=== PATIENT | female | born 1970 | race Caucasian/White ===

== ENCOUNTER 2017-04-02 11:25 | Emergency (ER) | payer MEDICARE, MEDICAID ==
--- NOTE | 2017-04-02 11:47 | EDM.PDOC ---
ED HPI GENERAL MEDICAL PROBLEM - General Chief Complaint: Neurological Problem Stated Complaint: seizure Time Seen by Provider: 04/02/17 11:35 Source of Information: Reports: Other (care givers) History Limitations: Reports: No Limitations - History of Present Illness INITIAL COMMENTS - FREE TEXT/NARRATIVE: 46 yo female with Down's Syndrome is brought from a local [facility] after a first time seizure that lasted about 1.5 minutes. She did bite her tongue. Is normally incontinent, so not sure if she was incontinent due to her seizure. Is on no meds for epilepsy. No recent head injuries that staff is aware of. Is back to her normal self now in the ER. 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: Other (see below) (none) - Related Data Allergies Allergy/AdvReac Type Severity Reaction Status Date / Time niacin Allergy Cannot Verified 04/02/17 11:37 Remember Home Meds: Home Meds Levothyroxine 200 mcg PO ACBREAKFAST #30 tab 04/02/17 [Rx] ED ROS GENERAL - Review of Systems Review Of Systems: See Below Constitutional: Reports: No Symptoms HEENT: Reports: No Symptoms Respiratory: Reports: No Symptoms Cardiovascular: Reports: No Symptoms Endocrine: Reports: No Symptoms GI/Abdominal: Reports: No Symptoms : Reports: No Symptoms Musculoskeletal: Reports: Other (rib pain from a recent fall, getting ibuprofen and acetaminophen for this. ) Skin: Reports: No Symptoms Neurological: Reports: Seizure Psychiatric: Reports: No Symptoms - Physical Exam Exam: See Below Exam Limited By: No Limitations General Appearance: Alert, WD/WN, No Apparent Distress Eye Exam: Bilateral Eye: Normal Inspection, PERRL Ears: Normal External Exam, Normal Canal, Hearing Grossly Normal, Normal TMs Nose: Normal Inspection, Normal Mucosa, No Blood Throat/Mouth: Normal Inspection, Normal Lips, Normal Oropharynx, Normal Voice, No Airway Compromise Head Exam: Atraumatic, Normocephalic Neck: Normal Inspection, Supple, Non-Tender Respiratory/Chest: No Respiratory Distress, Lungs Clear, Normal Breath Sounds, No Accessory Muscle Use Cardiovascular: Regular Rate, Rhythm, No Edema GI/Abdominal: Normal Bowel Sounds, Soft, Non-Tender, No Distention Neuro Exam (Abbreviated): Alert, Oriented, CN II-XII Intact, Normal Cognition, No Motor/Sensory Deficits Back Exam: Normal Inspection Extremities: Normal Inspection, Normal Range of Motion, Non-Tender, No Pedal Edema Psychiatric: Normal Affect, Normal Mood Skin Exam: Warm, Dry, Intact, Normal Color, No Rash Course - Vital Signs Last Recorded V/S: Last Vital Signs Temp 36.7 C 04/02/17 11:25 Pulse 52 L 04/02/17 12:59 Resp 15 04/02/17 12:59 BP 116/58 L 04/02/17 12:59 Pulse Ox 100 04/02/17 12:59 - Orders/Labs/Meds Orders: Active Orders 24 hr Category Date Time Status Head wo Cont [CT] Stat Exams 04/02/17 11:36 Taken Labs: Laboratory Tests 04/02/17 04/02/17 04/02/17 Range/Units 11:55 11:55 11:55 WBC 5.6 (4.5-12.0) X10-3/uL RBC 4.07 (3.23-5.20) x10(6)uL Hgb 13.3 (11.5-15.5) g/dL Hct 39.8 (30.0-51.3) % MCV 97.8 H (80-96) fL MCH 32.6 (27.7-33.6) pg MCHC 33.3 (32.2-35.4) g/dL RDW 13.0 (11.5-15.5) % Plt Count 199 (125-369) X10(3)uL Sodium 128 L (135-145) mmol/L Potassium 4.3 (3.5-5.3) mmol/L Chloride 93 L (100-110) mmol/L Carbon Dioxide 29 (23-29) mmol/L BUN 12 (5-20) mg/dL Creatinine 0.5 L (0.6-1.3) mg/dL Est Cr Clr Drug Dosing TNP Estimated GFR (MDRD) > 60 (>60) BUN/Creatinine Ratio 24.0 H (9-20) Glucose 82 (80-116) mg/dL Calcium 8.2 L (8.6-10.2) mg/dL TSH, Ultra Sensitive 8.09 H* (0.4-5.5) nlU/mL Urine Color (YELLOW) Urine Appearance (CLEAR) Urine pH (5.0-6.5) Ur Specific [place] (1.010-1.025) Urine Protein (NEGATIVE) mg/dL Urine Glucose (UA) (NEGATIVE) mg/dL Urine Ketones (NEGATIVE) mg/dL Urine Occult Blood (NEGATIVE) Urine Nitrite (NEGATIVE) Urine Bilirubin (NEGATIVE) Urine Urobilinogen (NEGATIVE) mg/dL Ur Leukocyte Esterase (NEGATIVE) Urine RBC (0) Urine WBC (0) Ur Squamous Epith Cells (NS,R,O) Urine Bacteria (NS) 04/02/17 Range/Units 12:32 WBC (4.5-12.0) X10-3/uL RBC (3.23-5.20) x10(6)uL Hgb (11.5-15.5) g/dL Hct (30.0-51.3) % MCV (80-96) fL MCH (27.7-33.6) pg MCHC (32.2-35.4) g/dL RDW (11.5-15.5) % Plt Count (125-369) X10(3)uL Sodium (135-145) mmol/L Potassium (3.5-5.3) mmol/L Chloride (100-110) mmol/L Carbon Dioxide (23-29) mmol/L BUN (5-20) mg/dL Creatinine (0.6-1.3) mg/dL Est Cr Clr Drug Dosing Estimated GFR (MDRD) (>60) BUN/Creatinine Ratio (9-20) Glucose (80-116) mg/dL Calcium (8.6-10.2) mg/dL TSH, Ultra Sensitive (0.4-5.5) nlU/mL Urine Color Yellow (YELLOW) Urine Appearance Slightly cloudy (CLEAR) Urine pH 7.0 H (5.0-6.5) Ur Specific [place] 1.015 (1.010-1.025) Urine Protein Negative (NEGATIVE) mg/dL Urine Glucose (UA) Normal (NEGATIVE) mg/dL Urine Ketones Negative (NEGATIVE) mg/dL Urine Occult Blood Large H (NEGATIVE) Urine Nitrite Negative (NEGATIVE) Urine Bilirubin Negative (NEGATIVE) Urine Urobilinogen Normal (NEGATIVE) mg/dL Ur Leukocyte Esterase Negative (NEGATIVE) Urine RBC 0-5 (0) Urine WBC 0-5 (0) Ur Squamous Epith Cells Few H (NS,R,O) Urine Bacteria Few H (NS) - Radiology Interpretation Free Text/Narrative:: Head CT scan- CT Results Date: 04/02/17 Departure - Departure Time of Disposition: 13:21 Disposition: Home, Self-Care 01 Condition: Good Clinical Impression: Seizure Hypothyroidism Qualifiers: Hypothyroidism type: unspecified Qualified Code(s): E03.9 - Hypothyroidism, unspecified - Discharge Information Prescriptions: Levothyroxine 200 mcg PO ACBREAKFAST #30 tab Referrals: Davy Romano MD [ED Physician] - Forms: ED Department Discharge Additional Instructions: Increase your thyroid medicine to 200 mcg daily. F/U for recheck in the clinic in the next week or so, call for an appt. If another seizure occurs will need recheck to start seizure medicine. - My Orders Last 24 Hours: My Active Orders 04/02/17 11:36 Head wo Cont [CT] Stat - Assessment/Plan Last 24 Hours: My Active Orders 04/02/17 11:36 Head wo Cont [CT] Stat
[2017-04-02 13:00] VITALS: BP 116/58
--- NOTE | 2017-04-02 13:43 | CT ---
INDICATION: First time seizure. CT HEAD WITHOUT CONTRAST: Serial contiguous 2.5 and 5-mm sections were obtained through the brain without contrast, 04/02/2017. No comparisons. Total Exam DLP = 845.81 mGy-cm. Visualized paranasal sinuses and mastoid air cells appear well aerated. No definite cranial abnormality was identified. No shift of midline structures was seen. The ventricles are somewhat prominent , compatible with central atrophy, possibly more prominent on the left than right, since the left lateral ventricle is larger than the right lateral ventricle. This could also be a normal variant. Some minimal calcification is noted in the basal ganglia bilaterally. There is question of a tiny lacunar infarct in the internal capsule on the right near the genu. No definite abnormal areas of density were otherwise suggested. No bleeding site or hematoma was seen. There do appear to be some minimal calcifications in the right internal carotid artery. IMPRESSION: 1. No acute intracranial abnormality. 2. Suggestion of central atrophy, especially on the left. 3. Possible tiny lacunar infarct near the genu internal capsule right side. Report was given in person to Dr. Gallagher at 1205 hours, 04/02/2017. [facility]
== END 2017-04-02 13:40 | disposition home or self-care (01) ==
LOC: FB.ED 11:25
DX: R56.9 Unspecified convulsions (principal); E03.9 Hypothyroidism, unspecified; Z88.8 Allergy status to other drugs, medicaments and biological substances
CPT/HCPCS: 36415; 70450; 80048; 81001; 84443; 85027; 99284; 99285

== ENCOUNTER 2022-06-08 13:38 | Emergency (ER) | payer MEDICARE, MEDICAID ==
[2022-06-08 14:15] VITALS: PULSE 57
[2022-06-08] MEDS ORDERED: Sulfamethoxazole/Trimethoprim 800-160 MG Tab PO ONE (14:44)
[2022-06-08 17:03] VITALS: BP 126/74
== END 2022-06-08 15:30 | disposition home or self-care (01) ==
LOC: FB.ED 13:38
DX: N39.0 Urinary tract infection, site not specified (principal); E78.00 Pure hypercholesterolemia, unspecified; E03.9 Hypothyroidism, unspecified; E66.9 Obesity, unspecified; Z88.1 Allergy status to other antibiotic agents; Z79.899 Other long term (current) drug therapy; Z68.33 Body mass index [BMI] 33.0-33.9, adult
CPT/HCPCS: 81001; 87086; 87088; 87186; 99283; A9270-GY

== ENCOUNTER 2022-06-12 11:06 | Emergency (ER) | payer MEDICARE, MEDICAID ==
[2022-06-12 11:30] VITALS: BP 131/80; PULSE 55
[2022-06-12 11:52] LABS: ESTIMATED GFR 89 mL/min (>60)
[2022-06-12] MEDS ORDERED: Sodium Chloride 0.9% 10 ML Syringe FLUSH PRN (12:25)
[2022-06-12] MEDS ORDERED: Sodium Chloride 0.9% 1,000 ML IV SCH ×2 (12:30→14:15)
[2022-06-12 15:58] LABS: ESTIMATED GFR 89 mL/min (>60)
[2022-06-14 12:11] LABS: A/G RATIO 1.2 (0.7-1.7); ALBUMIN 3.5 g/dL (2.9-4.4); ALPHA-1-GLOBULIN 0.3 g/dL (0.0-0.4); ALPHA-2-GLOBULIN 0.8 g/dL (0.4-1.0); GAMMA GLOBULIN 0.9 g/dL (0.4-1.8); M-SPIKE Not Observed g/dL (Not Observed); PROTEIN, TOTAL, SERUM 6.5 g/dL (6.0-8.5)
[2022-06-17 13:08] LABS: M-SPIKE, % Not Observed % (Not Observed); PROTEIN,TOTAL,URINE 4.3 mg/dL (Not Estab.)
== END 2022-06-12 16:45 | disposition home or self-care (01) ==
LOC: FB.ED 11:06
DX: R55 Syncope and collapse (principal); E87.1 Hypo-osmolality and hyponatremia; E66.9 Obesity, unspecified; Z68.41 Body mass index [BMI] 40.0-44.9, adult; Z88.8 Allergy status to other drugs, medicaments and biological substances; Z79.899 Other long term (current) drug therapy
CPT/HCPCS: 36415; 70450; 80048; 80053; 84165; 84166; 85025; 85651; 86140; 93005; 96360; 96361; 99285-25; J7030

== ENCOUNTER 2024-09-18 20:37 | Inpatient (IN) | payer OTHER, MEDICAID ==
[2024-09-18] MEDS: Sodium Chloride 0.9% 1,000 ML IV SCH ×2 (21:19→22:51)
[2024-09-18 21:33] LABS: BASOPHILS PERCENT AUTO 0.3 % (0.2-1.5); EOSINOPHILS ABSOLUTE AUTO 0.1 x10-3/uL (0.0-0.8); EOSINOPHILS PERCENT AUTO 0.9 % (0.6-8.1); HEMATOCRIT 40.2 % (34.2-48.2); HEMOGLOBIN 13.7 g/dL (11.4-15.5); LYMPHOCYTES ABSOLUTE AUTO 1.5 x10-3/uL (1.0-4.4); LYMPHOCYTES PERCENT AUTO 15.1 % (18.4-52.1); MEAN CORPUSCULAR HEMOGLOBIN 33.4 pg (23.9-33.9); MEAN CORPUSCULAR HGB CONC 34.1 g/dL (31.9-34.8); MEAN CORPUSCULAR VOLUME 98.1 fL (76.7-100.5); MEAN PLATELET VOLUME 8.4 fL (7.1-12.4); MONOCYTES ABSOLUTE AUTO 0.9 x10-3/uL (0.3-1.0); MONOCYTES PERCENT AUTO 9.2 % (4.4-15.7); NEUTROPHILS ABSOLUTE AUTO 7.4 x10-3/uL (1.5-6.3); NEUTROPHILS PERCENT AUTO 74.5 % (30.8-76.2); PLATELET COUNT,PLT 257 x10(3)uL (151-488); RED CELL DISTRIBUTION WIDTH 13.9 % (12.3-16.5); WHITE BLOOD CELL COUNT,WBC 9.9 x10-3/uL (3.0-10.3)
[2024-09-18 21:34] LABS: BLOOD UREA NITROGEN,BUN 16 mg/dL (7-18); BUN/CREATININE RATIO 22.9 (9-20); CALCIUM 8.7 mg/dL (8.6-10.2); CARBON DIOXIDE,CO2 28 mmol/L (21-32); CHLORIDE,CL 94 mmol/L (100-110); CREATININE 0.7 mg/dL (0.55-1.02); ESTIMATED GFR 103 mL/min (>60); GLUCOSE RANDOM 101 mg/dL (80-116); SODIUM,NA 128 mmol/L (135-145)
[2024-09-18] MEDS ORDERED: Ondansetron 4 MG/2 ML SDV IV PRN (21:56)
[2024-09-18 22:15] LABS: INFLUENZA A NAA NEGATIVE (NEGATIVE); INFLUENZA B NAA NEGATIVE (NEGATIVE); RESPIRATORY SYNCYTIAL VIR NAA POSITIVE (NEGATIVE)
[2024-09-18 22:19] LABS: CORONAVIRUS COVID-19 NAA NEGATIVE (NEGATIVE)
[2024-09-18] MEDS: cefTRIAXone 1 GM Vial IVPUSH SCH (22:39)
[2024-09-18] MEDS: Azithromycin 500 MG in Sodium Chloride 0.9% 250 ML IV SCH (22:52)
[2024-09-19 06:43] LABS: BASOPHILS PERCENT AUTO 0.2 % (0.2-1.5); EOSINOPHILS ABSOLUTE AUTO 0.1 x10-3/uL (0.0-0.8); EOSINOPHILS PERCENT AUTO 0.9 % (0.6-8.1); HEMOGLOBIN 12.7 g/dL (11.4-15.5); LYMPHOCYTES ABSOLUTE AUTO 1.3 x10-3/uL (1.0-4.4); MEAN CORPUSCULAR HEMOGLOBIN 32.4 pg (23.9-33.9); MEAN CORPUSCULAR HGB CONC 33.5 g/dL (31.9-34.8); MEAN CORPUSCULAR VOLUME 96.6 fL (76.7-100.5); MEAN PLATELET VOLUME 8.3 fL (7.1-12.4); MONOCYTES ABSOLUTE AUTO 0.7 x10-3/uL (0.3-1.0); MONOCYTES PERCENT AUTO 10.2 % (4.4-15.7); NEUTROPHILS ABSOLUTE AUTO 5.1 x10-3/uL (1.5-6.3); NEUTROPHILS PERCENT AUTO 70.7 % (30.8-76.2); PLATELET COUNT,PLT 229 x10(3)uL (151-488); RED BLOOD CELL COUNT 3.93 x10(6)uL (3.60-5.20); RED CELL DISTRIBUTION WIDTH 13.4 % (12.3-16.5); WHITE BLOOD CELL COUNT,WBC 7.2 x10-3/uL (3.0-10.3)
[2024-09-19 06:54] LABS: A/G RATIO 0.6; ALANINE AMINOTRANSFERASE,ALT 50 U/L (12-36); ALBUMIN 2.2 g/dL (3.5-5.2); ALKALINE PHOSPHATASE 72 IU/L (56-112); ASPARTATE AMNIOTRANSFERASE,AST 33 IU/L (5-25); BILIRUBIN TOTAL 0.4 mg/dL (0.1-1.3); BLOOD UREA NITROGEN,BUN 8 mg/dL (7-18); BUN/CREATININE RATIO 13.3 (9-20); CARBON DIOXIDE,CO2 27 mmol/L (21-32); CHLORIDE,CL 96 mmol/L (100-110); CREATININE 0.6 mg/dL (0.55-1.02); EST CRCL DRUG DOSING (CG) 76.99 mL/min; ESTIMATED GFR 107 mL/min (>60); GLUCOSE RANDOM 100 mg/dL (80-116); POTASSIUM,K 3.8 mmol/L (3.5-5.3); PROTEIN TOTAL,TP 6.2 g/dL (6.0-8.0); SODIUM,NA 129 mmol/L (135-145)
[2024-09-19] MEDS: Enoxaparin 40 MG/0.4 ML Syringe SUBCUT SCH (10:50)
[2024-09-19] MEDS: VANCOmycin 1.5 GM/300 ML 1.5 GM in Premix Bag 1 BAG IV ONE (10:50)
[2024-09-19] MEDS: Albuterol 0.083% 2.5 MG/3 ML Neb Soln NEB PRN (11:42)
[2024-09-19] MEDS: VANCOmycin 1 GM/200 ML 1 GM in Premix Bag 1 BAG IV SCH (21:06)
[2024-09-19] MEDS: Emollient 454 GM Jar TOP SCH (21:08)
[2024-09-19] MEDS: Saccharomyces Boulardii (Probiotic) 250 MG Cap PO SCH (21:14)
[2024-09-19] MEDS: atorvaSTATin 20 MG Tab PO SCH (21:14)
[2024-09-19] MEDS: Acetaminophen 325 MG Tab PO PRN (23:34)
[2024-09-19] MEDS: Melatonin 3 MG Tab PO PRN (23:34)
[2024-09-20 06:39] LABS: BASOPHILS PERCENT AUTO 0.2 % (0.2-1.5); EOSINOPHILS ABSOLUTE AUTO 0.1 x10-3/uL (0.0-0.8); HEMATOCRIT 35.7 % (34.2-48.2); HEMOGLOBIN 12.1 g/dL (11.4-15.5); LYMPHOCYTES ABSOLUTE AUTO 1.2 x10-3/uL (1.0-4.4); LYMPHOCYTES PERCENT AUTO 22.8 % (18.4-52.1); MEAN CORPUSCULAR HEMOGLOBIN 32.7 pg (23.9-33.9); MEAN CORPUSCULAR HGB CONC 33.8 g/dL (31.9-34.8); MEAN CORPUSCULAR VOLUME 96.8 fL (76.7-100.5); MEAN PLATELET VOLUME 8.6 fL (7.1-12.4); MONOCYTES ABSOLUTE AUTO 0.5 x10-3/uL (0.3-1.0); MONOCYTES PERCENT AUTO 10.4 % (4.4-15.7); NEUTROPHILS ABSOLUTE AUTO 3.4 x10-3/uL (1.5-6.3); NEUTROPHILS PERCENT AUTO 65.6 % (30.8-76.2); PLATELET COUNT,PLT 252 x10(3)uL (151-488); RED BLOOD CELL COUNT 3.69 x10(6)uL (3.60-5.20); RED CELL DISTRIBUTION WIDTH 13.7 % (12.3-16.5); WHITE BLOOD CELL COUNT,WBC 5.2 x10-3/uL (3.0-10.3)
[2024-09-20 06:47] LABS: A/G RATIO 0.5; ALANINE AMINOTRANSFERASE,ALT 49 U/L (12-36); ALKALINE PHOSPHATASE 71 IU/L (56-112); ASPARTATE AMNIOTRANSFERASE,AST 37 IU/L (5-25); BILIRUBIN TOTAL 0.3 mg/dL (0.1-1.3); BLOOD UREA NITROGEN,BUN 5 mg/dL (7-18); BUN/CREATININE RATIO 8.3 (9-20); CALCIUM 7.9 mg/dL (8.6-10.2); CARBON DIOXIDE,CO2 26 mmol/L (21-32); CHLORIDE,CL 99 mmol/L (100-110); CREATININE 0.6 mg/dL (0.55-1.02); EST CRCL DRUG DOSING (CG) 76.99 mL/min; ESTIMATED GFR 107 mL/min (>60); GLUCOSE RANDOM 100 mg/dL (80-116); POTASSIUM,K 3.8 mmol/L (3.5-5.3); PROTEIN TOTAL,TP 5.9 g/dL (6.0-8.0); SODIUM,NA 132 mmol/L (135-145)
[2024-09-20] MEDS ORDERED: Donepezil 5 MG Tab PO SCH (09:00)
[2024-09-20] MEDS: FLUoxetine 20 MG Cap PO SCH (09:27)
[2024-09-20] MEDS: Oxybutynin 5 MG Tab.ER PO SCH (09:27)
[2024-09-20] MEDS: Memantine 10 MG Tab PO SCH (09:28)
[2024-09-20] MEDS: Docusate Sodium 100 MG Cap PO SCH (09:28)
[2024-09-20] MEDS: Donepezil 10 MG Tab PO SCH (09:28)
[2024-09-20] MEDS: Cholecalciferol (Vitamin D3) 25 MCG Tab PO SCH (09:29)
[2024-09-20] MEDS: Fluticasone NASAL Spray 16 GM Bottle NAS SCH (09:29)
[2024-09-20] MEDS: Loratadine 10 MG Tab PO SCH (09:30)
[2024-09-20] MEDS: VANCOmycin 1.25 GM/250 ML 1.25 GM in Premix Bag 1 BAG IV SCH (09:48)
[2024-09-20] MEDS: Azithromycin 500 MG Tab PO SCH (21:11)
[2024-09-21 07:02] LABS: BASOPHILS PERCENT AUTO 0.3 % (0.2-1.5); EOSINOPHILS ABSOLUTE AUTO 0.1 x10-3/uL (0.0-0.8); EOSINOPHILS PERCENT AUTO 1.3 % (0.6-8.1); HEMATOCRIT 35.3 % (34.2-48.2); LYMPHOCYTES ABSOLUTE AUTO 1.1 x10-3/uL (1.0-4.4); LYMPHOCYTES PERCENT AUTO 20.2 % (18.4-52.1); MEAN CORPUSCULAR HEMOGLOBIN 32.6 pg (23.9-33.9); MEAN CORPUSCULAR VOLUME 95.8 fL (76.7-100.5); MEAN PLATELET VOLUME 8.7 fL (7.1-12.4); MONOCYTES ABSOLUTE AUTO 0.6 x10-3/uL (0.3-1.0); MONOCYTES PERCENT AUTO 9.9 % (4.4-15.7); NEUTROPHILS ABSOLUTE AUTO 3.8 x10-3/uL (1.5-6.3); NEUTROPHILS PERCENT AUTO 68.3 % (30.8-76.2); PLATELET COUNT,PLT 249 x10(3)uL (151-488); RED BLOOD CELL COUNT 3.68 x10(6)uL (3.60-5.20); RED CELL DISTRIBUTION WIDTH 13.4 % (12.3-16.5); WHITE BLOOD CELL COUNT,WBC 5.5 x10-3/uL (3.0-10.3)
[2024-09-21 07:07] LABS: A/G RATIO 0.5; ALANINE AMINOTRANSFERASE,ALT 61 U/L (12-36); ALBUMIN 2.2 g/dL (3.5-5.2); ALKALINE PHOSPHATASE 76 IU/L (56-112); ASPARTATE AMNIOTRANSFERASE,AST 45 IU/L (5-25); BILIRUBIN TOTAL 0.4 mg/dL (0.1-1.3); BLOOD UREA NITROGEN,BUN 6 mg/dL (7-18); BUN/CREATININE RATIO 8.6 (9-20); CALCIUM 8.2 mg/dL (8.6-10.2); CARBON DIOXIDE,CO2 27 mmol/L (21-32); CHLORIDE,CL 98 mmol/L (100-110); CREATININE 0.7 mg/dL (0.55-1.02); EST CRCL DRUG DOSING (CG) 65.99 mL/min; ESTIMATED GFR 103 mL/min (>60); GLUCOSE RANDOM 89 mg/dL (80-116); POTASSIUM,K 3.6 mmol/L (3.5-5.3); PROTEIN TOTAL,TP 6.4 g/dL (6.0-8.0); SODIUM,NA 133 mmol/L (135-145)
[2024-09-21] MEDS: [UNRECOGNIZED DRUG - OTHER] TOP PRN (08:44)
[2024-09-21 15:32] LABS: MRSA DETECTION BY PCR Not Detected
[2024-09-22 06:53] LABS: BASOPHILS PERCENT AUTO 0.4 % (0.2-1.5); EOSINOPHILS ABSOLUTE AUTO 0.1 x10-3/uL (0.0-0.8); EOSINOPHILS PERCENT AUTO 1.1 % (0.6-8.1); HEMATOCRIT 37.4 % (34.2-48.2); HEMOGLOBIN 12.5 g/dL (11.4-15.5); LYMPHOCYTES ABSOLUTE AUTO 1.1 x10-3/uL (1.0-4.4); LYMPHOCYTES PERCENT AUTO 21.1 % (18.4-52.1); MEAN CORPUSCULAR HEMOGLOBIN 32.1 pg (23.9-33.9); MEAN CORPUSCULAR HGB CONC 33.5 g/dL (31.9-34.8); MEAN PLATELET VOLUME 8.3 fL (7.1-12.4); MONOCYTES ABSOLUTE AUTO 0.5 x10-3/uL (0.3-1.0); MONOCYTES PERCENT AUTO 10.2 % (4.4-15.7); NEUTROPHILS ABSOLUTE AUTO 3.5 x10-3/uL (1.5-6.3); NEUTROPHILS PERCENT AUTO 67.3 % (30.8-76.2); PLATELET COUNT,PLT 289 x10(3)uL (151-488); RED CELL DISTRIBUTION WIDTH 13.6 % (12.3-16.5); WHITE BLOOD CELL COUNT,WBC 5.2 x10-3/uL (3.0-10.3)
[2024-09-22 07:03] LABS: A/G RATIO 0.5; ALANINE AMINOTRANSFERASE,ALT 69 U/L (12-36); ALBUMIN 2.1 g/dL (3.5-5.2); ALKALINE PHOSPHATASE 70 IU/L (56-112); ASPARTATE AMNIOTRANSFERASE,AST 51 IU/L (5-25); BILIRUBIN TOTAL 0.3 mg/dL (0.1-1.3); BLOOD UREA NITROGEN,BUN 7 mg/dL (7-18); BUN/CREATININE RATIO 11.7 (9-20); CALCIUM 8.1 mg/dL (8.6-10.2); CARBON DIOXIDE,CO2 27 mmol/L (21-32); CHLORIDE,CL 98 mmol/L (100-110); CREATININE 0.6 mg/dL (0.55-1.02); EST CRCL DRUG DOSING (CG) 76.99 mL/min; ESTIMATED GFR 107 mL/min (>60); GLUCOSE RANDOM 94 mg/dL (80-116); POTASSIUM,K 3.7 mmol/L (3.5-5.3); SODIUM,NA 132 mmol/L (135-145)
[2024-09-22] MEDS: Oxybutynin 5 MG Tab.ER PO ONE (11:33)
[2024-09-22] MEDS: Sodium Chloride 0.9% 10 ML Syringe FLUSH PRN (21:21)
[2024-09-23 06:51] LABS: BASOPHILS PERCENT AUTO 0.3 % (0.2-1.5); EOSINOPHILS ABSOLUTE AUTO 0.1 x10-3/uL (0.0-0.8); EOSINOPHILS PERCENT AUTO 1.8 % (0.6-8.1); HEMATOCRIT 37.8 % (34.2-48.2); HEMOGLOBIN 12.5 g/dL (11.4-15.5); LYMPHOCYTES ABSOLUTE AUTO 1.4 x10-3/uL (1.0-4.4); LYMPHOCYTES PERCENT AUTO 26.9 % (18.4-52.1); MEAN CORPUSCULAR HEMOGLOBIN 31.7 pg (23.9-33.9); MEAN CORPUSCULAR HGB CONC 33.1 g/dL (31.9-34.8); MEAN CORPUSCULAR VOLUME 95.6 fL (76.7-100.5); MEAN PLATELET VOLUME 8.3 fL (7.1-12.4); MONOCYTES ABSOLUTE AUTO 0.6 x10-3/uL (0.3-1.0); MONOCYTES PERCENT AUTO 11.5 % (4.4-15.7); NEUTROPHILS ABSOLUTE AUTO 3.1 x10-3/uL (1.5-6.3); NEUTROPHILS PERCENT AUTO 59.6 % (30.8-76.2); PLATELET COUNT,PLT 312 x10(3)uL (151-488); RED BLOOD CELL COUNT 3.95 x10(6)uL (3.60-5.20); RED CELL DISTRIBUTION WIDTH 13.5 % (12.3-16.5); WHITE BLOOD CELL COUNT,WBC 5.2 x10-3/uL (3.0-10.3)
[2024-09-23 07:05] LABS: A/G RATIO 0.5; ALANINE AMINOTRANSFERASE,ALT 82 U/L (12-36); ALKALINE PHOSPHATASE 66 IU/L (56-112); ASPARTATE AMNIOTRANSFERASE,AST 56 IU/L (5-25); BILIRUBIN TOTAL 0.3 mg/dL (0.1-1.3); BLOOD UREA NITROGEN,BUN 8 mg/dL (7-18); BUN/CREATININE RATIO 13.3 (9-20); CALCIUM 8.1 mg/dL (8.6-10.2); CARBON DIOXIDE,CO2 29 mmol/L (21-32); CHLORIDE,CL 98 mmol/L (100-110); CREATININE 0.6 mg/dL (0.55-1.02); EST CRCL DRUG DOSING (CG) 76.99 mL/min; ESTIMATED GFR 107 mL/min (>60); GLUCOSE RANDOM 88 mg/dL (80-116); POTASSIUM,K 3.8 mmol/L (3.5-5.3); PROTEIN TOTAL,TP 5.9 g/dL (6.0-8.0); SODIUM,NA 134 mmol/L (135-145)
[2024-09-23 08:56] VITALS: BP 109/68; PULSE 55
== END 2024-09-23 09:59 | disposition swing bed (61) | DRG 178 ==
LOC: FB.ED 20:37 → FB.MS 21:56
PROVIDERS: ADMIT Family Medicine; ATTEND Family Medicine
DX: J15.211 Pneumonia due to Methicillin susceptible Staphylococcus aureus (principal); E22.2 Syndrome of inappropriate secretion of antidiuretic hormone; R78.81 Bacteremia; J18.1 Lobar pneumonia, unspecified organism; E78.00 Pure hypercholesterolemia, unspecified; G47.30 Sleep apnea, unspecified; F32.A Depression, unspecified; E03.9 Hypothyroidism, unspecified; E66.9 Obesity, unspecified; G30.0 Alzheimer's disease with early onset; F02.C0 Dementia in other diseases classified elsewhere, severe, without behavioral disturbance, psychotic disturbance, mood disturbance, and anxiety; J12.1 Respiratory syncytial virus pneumonia; J15.9 Unspecified bacterial pneumonia; N32.81 Overactive bladder; Z88.1 Allergy status to other antibiotic agents; Z79.899 Other long term (current) drug therapy; Z79.02 Long term (current) use of antithrombotics/antiplatelets; Z68.34 Body mass index [BMI] 34.0-34.9, adult; Q90.9 Down syndrome, unspecified
CPT/HCPCS: 0241U; 36415; 71045; 80048; 80053; 80202; 83605; 85025; 86140; 87040; 87077; 87186; 87641; 94640; 96360; 99223; 99233; 99238; 99284-25; 99285; A7290-GY; A9270-GY; J0456; J0696; J1650; J3372; J7030; J7050

== ENCOUNTER 2024-09-23 10:32 | Inpatient (IN) | payer OTHER, MEDICAID ==
[2024-09-23] MEDS ORDERED: guaiFENesin 600 MG Tab.ER PO PRN (10:39)
[2024-09-23] MEDS ORDERED: [UNRECOGNIZED DRUG - OTHER] TOP PRN (11:00)
[2024-09-23] MEDS: ceFAZolin 2 GM Vial IVPUSH SCH (12:05)
[2024-09-23] MEDS: Emollient 454 GM Jar TOP SCH (12:06)
[2024-09-23] MEDS: CLINDAMYCIN PHOSPHATE TOP SCH (12:08)
[2024-09-23] MEDS: Fluticasone NASAL Spray 16 GM Bottle NAS SCH (12:09)
[2024-09-23] MEDS: Ibuprofen 400 MG Tab PO PRN (17:31)
[2024-09-23] MEDS ORDERED: Mineral Oil/White Petrolatum Crm 113 GM Jar TOP SCH (21:00)
[2024-09-23] MEDS: atorvaSTATin 20 MG Tab PO SCH (21:10)
[2024-09-23] MEDS: Memantine 10 MG Tab PO SCH (21:10)
[2024-09-23] MEDS: Acetaminophen 325 MG Tab PO PRN (21:20)
[2024-09-23] MEDS: Melatonin 3 MG Tab PO PRN (21:22)
[2024-09-24] MEDS: Sodium Chloride 0.9% 10 ML Syringe FLUSH PRN (03:48)
[2024-09-24] MEDS: Cholecalciferol (Vitamin D3) 25 MCG Tab PO SCH (08:38)
[2024-09-24] MEDS: FLUoxetine 20 MG Cap PO SCH (08:38)
[2024-09-24] MEDS: Multivitamins with Iron/Calcium/Folic Acid/Minerals Tab PO SCH (08:40)
[2024-09-24] MEDS: Donepezil 10 MG Tab PO SCH (08:47)
[2024-09-24] MEDS: Oxybutynin 5 MG Tab.ER PO SCH (08:48)
[2024-09-24] MEDS: Loratadine 10 MG Tab PO SCH (08:48)
[2024-09-24] MEDS: Triamcinolone Acetonide 0.1% Oint 15 GM Tube TOP SCH (08:51)
[2024-09-24] MEDS: Triamcinolone Acetonide 0.1% Crm 15 GM Tube TOP SCH (08:51)
[2024-09-24] MEDS: [UNRECOGNIZED DRUG - OTHER] TOP PRN (20:45)
[2024-09-25] MEDS: HYDROCORTISONE 2.5% TOP SCH (08:59)
[2024-10-03] MEDS: Saccharomyces Boulardii (Probiotic) 250 MG Cap PO SCH (08:45)
[2024-10-05 18:42] VITALS: BP 100/56; PULSE 56
== END 2024-10-05 18:15 | disposition home or self-care (01) | DRG 871 ==
LOC: FB.MS 10:32
PROVIDERS: ADMIT Family Medicine; ATTEND Family Medicine
DX: R78.81 Bacteremia (principal); I33.0 Acute and subacute infective endocarditis; J15.9 Unspecified bacterial pneumonia; F02.C3 Dementia in other diseases classified elsewhere, severe, with mood disturbance; B95.61 Methicillin susceptible Staphylococcus aureus infection as the cause of diseases classified elsewhere; E78.00 Pure hypercholesterolemia, unspecified; E66.9 Obesity, unspecified; E03.9 Hypothyroidism, unspecified; G30.0 Alzheimer's disease with early onset; Q90.9 Down syndrome, unspecified; G47.33 Obstructive sleep apnea (adult) (pediatric); Z79.899 Other long term (current) drug therapy; Z88.8 Allergy status to other drugs, medicaments and biological substances; Z68.32 Body mass index [BMI] 32.0-32.9, adult
CPT/HCPCS: 36410; 93308; 97165-GO; 99306; 99309; 99315; A9270-GY; J0690

== ENCOUNTER 2024-11-14 11:20 | Emergency (ER) | payer OTHER, MEDICAID ==
[2024-11-14 11:37] VITALS: PULSE 89
== END 2024-11-14 12:30 ==
LOC: FB.ED 11:20
DX: S63.522A Sprain of radiocarpal joint of left wrist, initial encounter (principal); Q90.9 Down syndrome, unspecified; E66.9 Obesity, unspecified; E03.9 Hypothyroidism, unspecified; E78.00 Pure hypercholesterolemia, unspecified; Z79.899 Other long term (current) drug therapy; Z79.51 Long term (current) use of inhaled steroids; Z79.1 Long term (current) use of non-steroidal anti-inflammatories (NSAID); Z88.8 Allergy status to other drugs, medicaments and biological substances; X58.XXXA Exposure to other specified factors, initial encounter
CPT/HCPCS: 99284